=== PATIENT | female | born 1980 | race Caucasian/White ===

== ENCOUNTER 2017-02-11 00:15 | Emergency (ER) | payer MEDICAID ==
[~2017-02-11] VITALS: Ht 162.6 cm; Wt 69.4 kg
[~2017-02-11 00:15] MED LIST: ABILIFY15 MG ORAL; BACITRACIN1 APPLIC TOPIC; BACTRIM DS TAB1 EAC1 ORAL; BUPROPION XL300 MG ORAL; CLINDAMYCIN HC150 MG ORAL; MIRTAZAPINE15 M3 ORAL; NORCO 5-325 TA1 EACH ORAL; ROBAXIN-750750 MG PO; SERTRALINE HCL50 MG PO
[2017-02-11 00:35] VITALS: BP 111/71
[2017-02-11 01:08] VITALS: BP 111/71
--- NOTE | 2017-02-11 08:08 | Emergency Room Report ---
History of Present Illness General Chief Complaint: Multiple Trauma/Fall Source: Patient Present Illness HPI Patient's 36-year-old female presented after increased vaginal discharge as well as reported bleeding after a fall. Patient had the been presently 7 months OB. She denied recent fever. Reportedly her baby has been moving. She reported having some abdominal cramping. Allergies: Coded Allergies: No Known Allergies (Unverified , 12/09/12) Patient History Past Medical History: see triage record Now: Yes - 7 months Reviewed Nursing Documentation: PMH: Agreed, PSxH: Agreed Nursing Documentation-PMH Past Medical History: No Stated History Review of Systems All Other Systems: negative except mentioned in HPI Physical Exam Vital Signs Date Time Temp Pulse Resp B/P Pulse Ox O2 Delivery O2 Flow Rate FiO2 02/11/17 00:28 98.1 106 16 111/71 99 Room Air Sp02 EP Interpretation: reviewed, normal General Appearance: normal inspection, well appearing, no apparent distress, alert, GCS 15, non-toxic Head: atraumatic ENT: normal ENT inspection, hearing grossly normal, normal voice Neck: normal inspection, full range of motion, supple, no bony tend Respiratory: normal inspection, lungs clear, normal breath sounds, no respiratory distress, no retraction, no wheezing Cardiovascular #1: regular rate, rhythm, no edema Gastrointestinal: normal inspection, normal bowel sounds, non tender, soft, no guarding, no hernia Genitourinary: no CVA tenderness, cervix normal, ext genitalia/vag normal, os closed Musculoskeletal: normal inspection, back normal, normal range of motion Neurologic: normal inspection, alert, oriented x3, responsive, speech normal Psychiatric: normal inspection, judgement/insight normal, mood/affect normal Skin: normal inspection, normal color, no rash Medical Decision Making Diagnostic Impression: Primary Impression: Fall Additional Impressions: Intrauterine Third trimester ER Course Patient presented for fall. Differential diagnosis include was noted to labor, ruptured membranes, demise among others. The bedside ultrasound was performed and showed adequate heart tones. Patient noted have movement. Cervix to be closed. Patient was subsequently discharged She is advised to followup with an OB facility which could perform monitoring. Last Vital Signs Date Time Temp Pulse Resp B/P Pulse Ox O2 Delivery O2 Flow Rate FiO2 02/11/17 01:08 98.1 16 111/71 99 Room Air 02/11/17 00:28 106 Status: improved Disposition: HOME, SELF-CARE Condition: Stable Referrals: NOT CHOSEN IPA/MD,REFERRING Patient Instructions: Fall Prevention in the Home, Vaginal Bleeding During , Third Trimester Dain Moss Feb 11, 2017 08:08
== END 2017-02-11 01:08 | disposition home or self-care (01) ==
LOC: EMR 00:59
DX: O26.893 Other specified pregnancy related conditions, third trimester (principal); N89.8 Other specified noninflammatory disorders of vagina; Z91.81 History of falling
CPT/HCPCS: 99282

== ENCOUNTER 2018-07-04 19:33 | Emergency (ER) | payer MEDICAID ==
[~2018-07-04] VITALS: Ht 165.1 cm; Wt 47.6 kg
[2018-07-04 19:53] VITALS: BP 122/80
[2018-07-04 20:36] LABS: EOSINOPHILS % (AUTO) 2.6 % (0.0-3.0); HEMATOCRIT 38.9 % (37.0-47.0); HEMOGLOBIN 12.9 G/DL (12.0-16.0); LYMPHOCYTES % (AUTO) 33.7 % (20.0-45.0); MEAN CORPUSCULAR VOLUME 84 FL (80-99); MONOCYTES % (AUTO) 8.6 % (1.0-10.0); NEUTROPHILS % (AUTO) 54.1 % (45.0-75.0); PLATELET COUNT 392 K/UL (150-450); RED BLOOD COUNT 4.64 M/UL (4.20-5.40); RED CELL DISTRIBUTION WIDTH 12.4 % (11.6-14.8); WHITE BLOOD COUNT 11.4 K/UL (4.8-10.8)
[2018-07-04 20:43] LABS: ANION GAP 8 mmol/L (5-15); BLOOD UREA NITROGEN 12 mg/dL (7-18); CALCIUM 9.5 MG/DL (8.5-10.1); CARBON DIOXIDE 31 MMOL/L (21-32); CHLORIDE 104 MMOL/L (98-107); CREATININE 0.7 MG/DL (0.55-1.30); POTASSIUM 3.7 MMOL/L (3.5-5.1); SODIUM 142 MMOL/L (136-145)
[2018-07-04 20:48] LABS: ALANINE AMINOTRANSFERASE 20 U/L (12-78); ALBUMIN 3.8 G/DL (3.4-5.0); ALBUMIN/GLOBULIN RATIO 0.9 (1.0-2.7); ALKALINE PHOSPHATASE 75 U/L (46-116); ASPARTATE AMINO TRANSFERASE 12 U/L (15-37); BILIRUBIN,TOTAL 0.2 MG/DL (0.2-1.0)
[2018-07-04] MEDS ORDERED: ANUSOL-HC25 MG RECTAL (21:09)
[2018-07-04 21:34] LABS: BILIRUBIN, URINE NEGATIVE (NEGATIVE); COLOR,URINE PALE YELLOW; GLUCOSE, URINE (UA) NEGATIVE (NEGATIVE); KETONES,URINE NEGATIVE (NEGATIVE); LEUKOCYTE ESTERASE ,URINE 1+ (NEGATIVE); NITRITE,URINE POSITIVE (NEGATIVE); PH,URINE 6 (4.5-8.0); PROTEIN,URINE NEGATIVE (NEGATIVE); UROBILINOGEN,URINE NORMAL MG/DL (0.0-1.0)
[2018-07-04 21:35] LABS: APPEARANCE,URINE SLIGHTLY CLOUDY
--- NOTE | 2018-07-04 21:51 | Emergency Room Report ---
History of Present Illness General Chief Complaint: General Complaint Source: Patient (Piyush Gan MD) Present Illness HPI 38-year-old female presents ED for evaluation. States that she noticed rectal bleeding today. Started after using the bathroom while wiping. Noticed blood dripping in the toilet. States that for the last week she's been using a laxative to help "lose weight". Denies any abdominal pain. Denies seeing any blood thinners. States that her mother looked at her rectum and states that she might have a hemorrhoid. No other aggravating relieving factors. Denies any other associated symptoms (Piyush Gan MD) Allergies: Coded Allergies: No Known Allergies (Unverified , 12/09/12) Patient History Past Medical History: psych hx Past Surgical History: none Pertinent Family History: none Social History: Denies: smoking, alcohol use, drug use Last Menstrual Period: One week ago Now: No Immunizations: UTD Reviewed Nursing Documentation: PMH: Agreed; PSxH: Agreed (Piyush Gan MD) Nursing Documentation-PMH History Of Psychiatric Problem: Yes - PTSD (Piyush Gan MD) Review of Systems All Other Systems: negative except mentioned in HPI (Piyush Gan MD) Physical Exam Vital Signs Date Time Temp Pulse Resp B/P (MAP) Pulse Ox O2 Delivery O2 Flow Rate FiO2 07/04/18 19:45 98.2 94 16 122/80 97 Room Air Sp02 EP Interpretation: reviewed, normal General Appearance: no apparent distress, alert, GCS 15, non-toxic Head: normocephalic, atraumatic Eyes: bilateral eye normal inspection, bilateral eye PERRL ENT: hearing grossly normal, normal pharynx, no angioedema, normal voice Neck: full range of motion, supple/symm/no masses Respiratory: chest non-tender, lungs clear, normal breath sounds, speaking full sentences Cardiovascular #1: regular rate, rhythm, no edema Cardiovascular #2: 2+ carotid (R), 2+ carotid (L), 2+ radial (R), 2+ radial (L) , 2+ dorsalis pedis (R), 2+ dorsalis pedis (L) Gastrointestinal: normal bowel sounds, non tender, soft, non-distended, no guarding, no rebound Rectal: hemorrhoids Genitourinary: normal inspection, no CVA tenderness Musculoskeletal: back normal, gait/station normal, normal range of motion, non- tender Neurologic: alert, oriented x3, responsive, motor strength/tone normal, sensory intact, speech normal Psychiatric: judgement/insight normal, memory normal, mood/affect normal, no suicidal/homicidal ideation Reflexes: 3+ bicep (R), 3+ bicep (L), 3+ tricep (R), 3+ tricep (L), 3+ knee (R) , 3+ knee (L) Skin: normal color, no rash, warm/dry, well hydrated Lymphatic: no adenopathy (Piyush Gan MD) Medical Decision Making Diagnostic Impression: Primary Impression: Hemorrhoids Qualified Codes: K64.9 - Unspecified hemorrhoids Additional Impression: LGI bleed Labs Test 07/04/18 20:02 07/04/18 21:20 White Blood Count 11.4 K/UL (4.8-10.8) Red Blood Count 4.64 M/UL (4.20-5.40) Hemoglobin 12.9 G/DL (12.0-16.0) Hematocrit 38.9 % (37.0-47.0) Mean Corpuscular Volume 84 FL (80-99) Mean Corpuscular Hemoglobin 27.8 PG (27.0-31.0) Mean Corpuscular Hemoglobin Concent 33.2 G/DL (32.0-36.0) Red Cell Distribution Width 12.4 % (11.6-14.8) Platelet Count 392 K/UL (150-450) Mean Platelet Volume 5.6 FL (6.5-10.1) Neutrophils (%) (Auto) 54.1 % (45.0-75.0) Lymphocytes (%) (Auto) 33.7 % (20.0-45.0) Monocytes (%) (Auto) 8.6 % (1.0-10.0) Eosinophils (%) (Auto) 2.6 % (0.0-3.0) Basophils (%) (Auto) 1.0 % (0.0-2.0) Prothrombin Time 10.2 SEC (9.30-11.50) Prothromb Time International Ratio 1.0 (0.9-1.1) Activated Partial Thromboplast Time 28 SEC (23-33) Sodium Level 142 MMOL/L (136-145) Potassium Level 3.7 MMOL/L (3.5-5.1) Chloride Level 104 MMOL/L (98-107) Carbon Dioxide Level 31 MMOL/L (21-32) Anion Gap 8 mmol/L (5-15) Blood Urea Nitrogen 12 mg/dL (7-18) Creatinine 0.7 MG/DL (0.55-1.30) Estimat Glomerular Filtration Rate > 60 mL/min (>60) Glucose Level 107 MG/DL (74-106) Calcium Level 9.5 MG/DL (8.5-10.1) Total Bilirubin 0.2 MG/DL (0.2-1.0) Aspartate Amino Transf (AST/SGOT) 12 U/L (15-37) Alanine Aminotransferase (ALT/SGPT) 20 U/L (12-78) Alkaline Phosphatase 75 U/L (46-116) Total Protein 8.0 G/DL (6.4-8.2) Albumin 3.8 G/DL (3.4-5.0) Globulin 4.2 g/dL Albumin/Globulin Ratio 0.9 (1.0-2.7) Lipase 97 U/L (73-393) Urine Color Pale yellow Urine Appearance Slightly cloudy Urine pH 6 (4.5-8.0) Urine Specific [place] 1.020 (1.005-1.035) Urine Protein Negative (NEGATIVE) Urine Glucose (UA) Negative (NEGATIVE) Urine Ketones Negative (NEGATIVE) Urine Blood 4+ (NEGATIVE) Urine Nitrite Positive (NEGATIVE) Urine Bilirubin Negative (NEGATIVE) Urine Urobilinogen Normal MG/DL (0.0-1.0) Urine Leukocyte Esterase 1+ (NEGATIVE) Urine HCG, Qualitative Negative (NEGATIVE) (Piyush Gan MD) ER Course Patient signout to me. She presents with lower GI bleeding. She had a large amount of bleeding here. She was signed out to me for pending transfer. I discussed the case with Dr. Amaral who accepted the patient for transfer at [facility]. (Ezra Jay MD) CT/MRI/US Diagnostic Results CT/MRI/US Diagnostic Results : Imaging Test Ordered: ABD US Impression increased echogenicity of liver. sludge and stones in gallbladder. negative murphys (Piyush Gan MD) Last Vital Signs Date Time Temp Pulse Resp B/P (MAP) Pulse Ox O2 Delivery O2 Flow Rate FiO2 07/04/18 19:53 94 16 Room Air 07/04/18 19:53 98.2 122/80 97 Status: improved (Piyush Gan MD) Disposition: XFER SHT-TRM HOSP Condition: Stable Scripts Hydrocortisone Acetate* (ANUSOL-HC*) 25 Mg Supp.rect 1 SUPP RECTAL TWICE A DAY, #10 SUPP Prov: Piyush Gan MD 07/04/18 Patient Instructions: Hemorrhoids, [id number] Piyush Gan MD Jul 04, 2018 21:51 Ezra Jay MD Jul 04, 2018 23:05
[2018-07-04 22:33] VITALS: BP 103/64
[2018-07-05 03:07] VITALS: BP 110/72
--- NOTE | 2018-07-05 09:29 | Diagnostic Imaging Report ---
Indication: Abdominal pain and abdominal distention Technique: Allred-scale and duplex images of the upper abdomen were obtained Comparison: Findings: Gallbladder is nondistended. There is questionably some sludge and probably small stones. One or more of the echogenic foci appear to be nondependent and could represent tiny polyps rather than calculi. No wall thickening nor pericholecystic fluid Sonographic Keating's sign is negative. Common bile duct measures 6 mm in diameter. No intrahepatic biliary ductal dilatation. Liver demonstrates diffusely increased echogenicity, consistent with diffuse hepatocellular disease, most likely fatty change. Portal vein and hepatic veins are patent. Pancreas is unremarkable. Spleen is unremarkable. Left kidney measures 11.6 cm in length. Right kidney measures 12.1 cm length. Both kidneys demonstrate normal echogenicity. There is no hydronephrosis. No focal abnormality . Non-aneurysmal abdominal aorta . No free intraperitoneal fluid Impression: Liver demonstrates diffusely increased echogenicity, consistent with diffuse hepatocellular disease, most likely fatty change. Cholelithiasis. One or more questionable nondependent echogenic gallbladder foci, could represent tiny polyp rather than calculi No biliary ductal dilatation
== END 2018-07-05 03:13 | disposition short-term general hospital (02) ==
LOC: EMR 20:35
DX: K64.9 Unspecified hemorrhoids (principal); K92.2 Gastrointestinal hemorrhage, unspecified
CPT/HCPCS: 36415; 76700; 80053; 81003; 81025; 83690; 85025; 85610; 85730; 87086; 96360; 99285

== ENCOUNTER 2019-11-28 18:07 | Emergency (ER) | payer MEDICAID ==
[~2019-11-28] VITALS: Ht 162.6 cm; Wt 65.8 kg
[~2019-11-28 18:07] MED LIST changes: +ANUSOL-HC25 MG RECTAL
[2019-11-28 18:15] VITALS: BP 125/67
--- NOTE | 2019-11-28 18:32 | Emergency Room Report ---
History of Present Illness General Chief Complaint: Puncture Wound Source: Patient Present Illness HPI 39-year-old female presents with pain of the superficial abdomen patient reports that a drill bit pressed against her abdomen and it scratched it yesterday she wanted to have the wound evaluated no pus or drainage per patient , no acute pain severity is nonexistent no aggravating alleviating factors, patient also endorses right foot pain that occurred a few days ago he states some wood fell on her right lateral foot there is a sharp pain aggravated with movement only with rest severity is mild, intermittent patient presents for evaluation and treatment Allergies: Coded Allergies: No Known Allergies (Unverified , 12/09/12) COVID-19 Screening Contact w/high risk pt: No Recent Travel to affected area: No Experienced COVID-19 symptoms?: No Patient History Past Medical History: see triage record Last Menstrual Period: last month Now: Yes : 6 Para: 5 Reviewed Nursing Documentation: PMH: Agreed; PSxH: Agreed Nursing Documentation-PMH Past Medical History: No History, Except For History Of Psychiatric Problem: Yes - anxiety Review of Systems All Other Systems: negative except mentioned in HPI Physical Exam Vital Signs Date Time Temp Pulse Resp B/P (MAP) Pulse Ox O2 Delivery O2 Flow Rate FiO2 11/28/19 18:15 98.6 96 18 125/67 98 Room Air General Appearance: well appearing, no apparent distress Head: normocephalic, atraumatic ENT: hearing grossly normal, normal voice Neck: full range of motion, supple Respiratory: no respiratory distress, speaking full sentences Gastrointestinal: non tender, soft, other - 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, abdomen has old bruising, soft nontender no rebound no guarding, secondary healing is noted no pus no drainage no erythema Musculoskeletal: other - Right lower extremity: 2+ PT DP fires EHL, 5-5 plantar dorsiflexion at the ankle mild tenderness in the lateral metatarsal, no deformity Neurologic: alert, normal gait Psychiatric: mood/affect normal Skin: no rash Medical Decision Making Diagnostic Impression: Primary Impression: Abrasion of skin Additional Impression: Foot pain, right ER Course 39-year-old female presents with vague complaints, patient with a well-healing wound on the abdomen no evidence of infection we will give her a Tdap, no antibiotics indicated, x-ray of the right foot is negative, disposition home with return precautions follow-up with PCP Other X-Ray Diagnostic Results Other X-Ray Diagnostic Results : X-Ray ordered: Right foot # of Views/Limited Vs Complete: 3 View Indication: Pain EP Interpretation: Yes Interpretation: no dislocation, no fractures Impression: No acute disease Electronically Signed by: Alex Viera MD Last Vital Signs Date Time Temp Pulse Resp B/P (MAP) Pulse Ox O2 Delivery O2 Flow Rate FiO2 11/28/19 18:15 98.6 96 18 125/67 (86) 98 Room Air Disposition: HOME, SELF-CARE Condition: Stable Referrals: [facility]. [facility] Patient Instructions: Abrasion, [id number], Foot Contusion, [id number] Additional Instructions: The patient was provided with discharge instructions, notified to follow-up with a primary care doctor and or specialist in the next 24-48 hours, and to return to the ED if they have worsening of their symptoms. Please note that this report is being documented using [employer] technology. This can lead to erroneous entry secondary to incorrect interpretation by the dictating instrument. Alex Viera MD November 28, 2019 18:31
[2019-11-28] MEDS ORDERED: Tetanus/Diptheria/Pertussis IM ONE (18:45)
[2019-11-28 18:50] VITALS: BP 134/70
--- NOTE | 2019-11-29 09:04 | Diagnostic Imaging Report ---
Indication: Right foot pain Technique: 3 views right foot Comparison: none Findings: No acute fractures. No dislocations. There is very mild hammertoe deformity of the second through fifth digits. Impression: Negative
== END 2019-11-28 18:50 | disposition home or self-care (01) ==
LOC: EMR 18:40
DX: S30.811A Abrasion of abdominal wall, initial encounter (principal); M79.671 Pain in right foot; W22.8XXA Striking against or struck by other objects, initial encounter; Y93.9 Activity, unspecified; Y92.9 Unspecified place or not applicable
CPT/HCPCS: 73630; 81025; 90471; 90715; Z7502; 99283

== ENCOUNTER 2020-01-09 18:34 | Emergency (ER) | payer MEDICAID ==
[~2020-01-09] VITALS: Ht 162.6 cm; Wt 68.0 kg
[2020-01-09 19:13] VITALS: BP 105/67
[2020-01-09 19:33] LABS: ANION GAP 7 mmol/L (5-15); BLOOD UREA NITROGEN 7 mg/dL (7-18); CALCIUM 8.5 MG/DL (8.5-10.1); CARBON DIOXIDE 27 MMOL/L (21-32); CHLORIDE 105 MMOL/L (98-107); CREATININE 0.7 MG/DL (0.55-1.30); POTASSIUM 3.4 MMOL/L (3.5-5.1); SODIUM 139 MMOL/L (136-145)
[2020-01-09 19:40] LABS: ALANINE AMINOTRANSFERASE 15 U/L (12-78); ALBUMIN 2.9 G/DL (3.4-5.0); ALBUMIN/GLOBULIN RATIO 0.9 (1.0-2.7); ALKALINE PHOSPHATASE 48 U/L (46-116); ASPARTATE AMINO TRANSFERASE 14 U/L (15-37); BILIRUBIN,TOTAL 0.2 MG/DL (0.2-1.0)
--- NOTE | 2020-01-09 20:04 | Diagnostic Imaging Report ---
EXAM: US First Trimester , Transabdominal and Transvaginal CLINICAL HISTORY: PAIN TECHNIQUE: Real-time transabdominal and transvaginal obstetrical ultrasound of the maternal pelvis and a first trimester with image documentation. Transvaginal imaging was used for better evaluation of the fetus and adnexa. COMPARISON: No relevant prior studies available. FINDINGS: Gestation: No IUP. Uterus/cervix: Thick, heterogeneous , slightly vascular endometrium measuring 1.7 cm. Ovaries: The ovaries are not visualized. Free fluid: No free fluid. IMPRESSION: 1. No IUP. 2. Thick heterogeneous , slightly vascular endometrium measuring 1.7 cm.
[2020-01-09 20:23] LABS: BASOPHILS % (AUTO) 0.9 % (0.0-2.0); EOSINOPHILS % (AUTO) 1.7 % (0.0-3.0); HEMOGLOBIN 9.7 G/DL (12.0-16.0); LYMPHOCYTES % (AUTO) 25.3 % (20.0-45.0); MEAN CORPUSCULAR VOLUME 91 FL (80-99); MONOCYTES % (AUTO) 6.1 % (1.0-10.0); NEUTROPHILS % (AUTO) 66.1 % (45.0-75.0); PLATELET COUNT 367 K/UL (150-450); RED BLOOD COUNT 3.29 M/UL (4.20-5.40); RED CELL DISTRIBUTION WIDTH 13.3 % (11.6-14.8); WHITE BLOOD COUNT 12.2 K/UL (4.8-10.8)
--- NOTE | 2020-01-09 21:02 | Emergency Room Report ---
History of Present Illness General Chief Complaint: Complications Source: Patient Present Illness HPI 39-year-old female who reports being A1 is wheeled into the ED due to lightheadedness status post miscarriage. Patient reports that she went to [facility] earlier today due to vaginal bleeding and was told that she has miscarried twins. Patient is a heavy tobacco smoker. Patient has a stab wound keloiding in the abdomen which reports that was done 2 weeks ago and she got it as she was drilling and accidentally drilled herself in the abdomen. Patient went to the emergency room then and was told that she also is . Patient denies any urinary symptoms. Denies any headache and dizziness at this time. Appears to be pale. Complains of little bit of nausea however denies any vomiting, diarrhea constipation. Vital signs are within normal limits. Denies any calf tenderness or pleural chest pain. Patient has an upcoming visit with RECONCILIATION ACCOUNTANT. Patient reports that she is still bleeding minimally toward the vaginal canal. Patient also complains of a pruritic scalp that has been ongoing for over a month and is painful due to her scratching it too much. Denies any contact with new allergens. Reports that her kids have ringworm. Allergies: Coded Allergies: No Known Allergies (Unverified , 12/09/12) COVID-19 Screening Contact w/high risk pt: No Recent Travel to affected area: No Experienced COVID-19 symptoms?: No COVID-19 Testing performed VOUCHER EXAMINER: No Patient History Past Medical History: see triage record Past Surgical History: none Pertinent Family History: none Social History: Reports: smoking Now: Yes - 3 months Immunizations: UTD Reviewed Nursing Documentation: PMH: Agreed; PSxH: Agreed Nursing Documentation-PMH Past Medical History: No Stated History Review of Systems All Other Systems: negative except mentioned in HPI Physical Exam Vital Signs Date Time Temp Pulse Resp B/P (MAP) Pulse Ox O2 Delivery O2 Flow Rate FiO2 01/09/20 18:41 98.2 115 16 107/70 (82) 98 Room Air Sp02 EP Interpretation: reviewed, normal General Appearance: alert, GCS 15, non-toxic, mild distress Head: normocephalic, atraumatic Eyes: bilateral eye normal inspection, bilateral eye PERRL ENT: normal ENT inspection, hearing grossly normal, EOM grossly intact Neck: full range of motion, supple, supple/symm/no masses Respiratory: chest non-tender, lungs clear, normal breath sounds, no rhonchi, no respiratory distress, no retraction, no wheezing, speaking full sentences Cardiovascular #1: regular rate, rhythm, no edema, no murmur Cardiovascular #2: 2+ carotid (R), 2+ carotid (L), 2+ radial (R), 2+ radial (L) , 2+ femoral (R), 2+ femoral (L), 2+ dorsalis pedis (R), 2+ dorsalis pedis (L) Gastrointestinal: normal bowel sounds, non tender, soft, no mass, no peritonitis, no bruit, non-distended, no guarding, no rebound, other - Keloid noted periumbilical status post puncture wound Rectal: deferred Genitourinary: no CVA tenderness Musculoskeletal: back normal, no calf tenderness Neurologic: alert, motor strength/tone normal, oriented x3, sensory intact, responsive, speech normal Psychiatric: judgement/insight normal, memory normal, mood/affect normal, no suicidal/homicidal ideation Skin: no rash Lymphatic: no adenopathy Medical Decision Making PA Attestation All diagnoses and treatment plans were reviewed and discussed with my supervising physician Dr. Jean Diagnostic Impression: Primary Impression: Complete Additional Impressions: Iron deficiency anemia Tinea capitis ER Course 39-year-old female who reports being A1 is wheeled into the ED due to lightheadedness status post miscarriage. Patient reports that she went to [facility] earlier today due to vaginal bleeding and was told that she has miscarried twins. Patient is a heavy tobacco smoker. Patient has a stab wound keloiding in the abdomen which reports that was done 2 weeks ago and she got it as she was drilling and accidentally drilled herself in the abdomen. Patient went to the emergency room then and was told that she also is . Patient denies any urinary symptoms. Denies any headache and dizziness at this time. Appears to be pale. Complains of little bit of nausea however denies any vomiting, diarrhea constipation. Vital signs are within normal limits. Denies any calf tenderness or pleural chest pain. Patient has an upcoming visit with RECONCILIATION ACCOUNTANT. Patient reports that she is still bleeding minimally toward the vaginal canal. Patient also complains of a pruritic scalp that has been ongoing for over a month and is painful due to her scratching it too much. Denies any contact with new allergens. Reports that her kids have ringworm. Ddx considered but are not limited to: Complete , returned material post , ectopic , threatened , Vital signs: are WNL, pt. is afebrile H&PE are most consistent with: Complete , tinea capitis, iron deficiency anemia most likely secondary to complete ORDERS: UA, urine cx, CBC, CMP, type and screen, PT and PTT, beta-hCG quantitative, OB ultrasound, diplegia's, Tylenol, Bactroban, clotrimazole cream , ketoconazole shampoo, ferrous sulfate ED INTERVENTIONS: NS bolus DISCHARGE: At this time pt. is stable for d/c to home. Will provide printed patient care instructions, and any necessary prescriptions. Care plan and follow up instructions have been discussed with the patient prior to discharge. In 24 to 48 hours, gave a list of women's clinic to follow-up with, take medication as directed, if worsening symptoms return to the emergency room. Increase oral hydration. CT/MRI/US Diagnostic Results CT/MRI/US Diagnostic Results : Imaging Test Ordered: OB ultrasound Impression FINDINGS: Gestation: No IUP. Uterus/cervix: Thick, heterogeneous , slightly vascular endometrium measuring 1.7 cm. Ovaries: The ovaries are not visualized. Free fluid: No free fluid. IMPRESSION: 1. No IUP. 2. Thick heterogeneous , slightly vascular endometrium measuring 1.7 cm. Last Vital Signs Date Time Temp Pulse Resp B/P (MAP) Pulse Ox O2 Delivery O2 Flow Rate FiO2 01/09/20 19:13 98.2 82 15 105/67 99 Room Air Disposition: HOME, SELF-CARE Condition: Stable Scripts Mupirocin* (MUPIROCIN*) 22 Gm Oint...g. 1 APPLIC TOPIC THREE TIMES A DAY, #22 GM Prov: KietmoghaGordon lawrence PA 01/09/20 Ketoconazole (KETOCONAZOLE) 120 Ml Shampoo 10 ML TP DAILY for 14 Days, #140 ML Prov: KietmogGordon farley PA 01/09/20 Clotrimazole* (LOTRIMIN*) 15 Gm Cream..g. 1 APPLIC TOPIC TWICE A DAY, #15 GM Prov: BrigidaelimoghavaGordon mejia 01/09/20 Diphenhydramine HCl (Benadryl) 25 Mg Capsule 25 MG PO BID, #14 CAP Prov: Gordon Galvan 01/09/20 Acetaminophen* (TYLENOL EXTRA STRENGTH*) 500 Mg Tablet 500 MG ORAL Q8H PRN for Prn Headache/Temp > 101, #30 TAB 0 Refills Prov: Gordon Galvan 01/09/20 Doxylamine/Pyridoxine Hcl (EFRA FUENTES 10-10 MG TABLET) 1 Each Tablet.dr 1 EACH PO DAILY, #10 TAB Prov: Gordon Galvan 01/09/20 Ferrous Sulfate* (FERROUS SULFATE*) 325 Mg Tablet 325 MG ORAL TWICE A DAY, #60 TAB 0 Refills Prov: Gordon Galvan 01/09/20 Referrals: NON PHYSICIAN (PCP) Patient Instructions: Iron Deficiency Anemia, Adult, [id number], Miscarriage , Ijlb-[id number], Scalp Ringworm, [id number]-[id number] Additional Instructions: Take medication as directed, follow-up with your RECONCILIATION ACCOUNTANT in 24 to 48 hours, your beta-hCG and ultrasound need to be repeated. If worsening symptoms return to the emergency room. Increase oral hydration especially electrolyte water. Gordon Galvan Jan 09, 2020 21:02
[2020-01-09] MEDS ORDERED: KETOCONAZOLE120 ML TP (21:08)
[2020-01-09] MEDS ORDERED: MUPIROCIN22 GM TOPIC (21:08)
[2020-01-09] MEDS ORDERED: CLOTRIMAZOLE15 GM TOPIC (21:08)
[2020-01-09] MEDS ORDERED: DICLEGIS DR 101 EACH PO (21:08)
[2020-01-09] MEDS ORDERED: TYLENOL EXTRA500 MG ORAL (21:08)
[2020-01-09] MEDS ORDERED: FERROUS SULFAT325 MG ORAL (21:08)
[2020-01-09] MEDS ORDERED: BENADRYL25 M3 PO (21:08)
[2020-01-09 21:43] VITALS: BP 116/69
== END 2020-01-09 21:45 | disposition home or self-care (01) ==
LOC: EMR 18:45
DX: O03.9 Complete or unspecified spontaneous abortion without complication (principal); D50.9 Iron deficiency anemia, unspecified; B35.0 Tinea barbae and tinea capitis; F17.200 Nicotine dependence, unspecified, uncomplicated
CPT/HCPCS: 36415; 76801; 76817; 80053; 84702; 84703; 85025; 85610; 85730; 86850; 86870; 86900; 86901; 96360; J7030; Z7502; 99284

== ENCOUNTER 2020-06-08 02:51 | Emergency (ER) | payer MEDICAID ==
[~2020-06-08] VITALS: Ht 162.6 cm; Wt 63.5 kg
[~2020-06-08 02:51] MED LIST changes: +BENADRYL25 M3 PO; +CLOTRIMAZOLE15 GM TOPIC; +DICLEGIS DR 101 EACH PO; +FERROUS SULFAT325 MG ORAL; +KETOCONAZOLE120 ML TP; +MUPIROCIN22 GM TOPIC; +TYLENOL EXTRA500 MG ORAL
[2020-06-08] MEDS ORDERED: AMOXICILLIN500 MG ORAL (02:55)
[2020-06-08 03:00] VITALS: BP 132/78
--- NOTE | 2020-06-08 03:00 | NUR ---
ED Nurse Note: Pt walked into ED from home c/o bilateral earache L>R that radiates to the temples. Pt denies fevers, n/v, chills. Pt states she was recently prescribed antifungal cream for earache ealier this week but symptoms remain. Pt denies tramatic injury to areas, denies swimmin recently. Pt is AAOx4, breathing even and unlabored, vital signs stable.
[2020-06-08] MEDS ORDERED: NIZORAL 2% S1 APPLIC TOPIC (03:26)
[2020-06-08] MEDS ORDERED: CIPRODEX OTIC7.5 M1 LEFT EAR (03:26)
[2020-06-08 03:34] VITALS: BP 130/75
--- NOTE | 2020-06-08 03:34 | NUR ---
ER DISCHARGE NOTE: Patient is cleared to be discharged per ERMD, pt is aox4, on room air, with stable vital signs. pt was given dc paperwork and paper prescriptions, pt was able to verbalize understanding, pt id band removed. pt is able to ambulate with steady gait. pt took all belongings.
--- NOTE | 2020-06-08 03:41 | Emergency Room Report ---
History of Present Illness General Chief Complaint: Earache Present Illness HPI 40-year-old female here with left ear pain and scalp rash. Patient says that she has had the scalp rash for 2 months and the left ear pain for several days. She says that "the outside of my ear hurts really badly." Denies hearing changes. Denies fevers, chills, chest pain, palpitations, shortness of breath, back pain, abdominal pain, nausea, vomiting, diarrhea, dysuria. Says that she has noticed some hair loss with a scaling flaking rash on her scalp. Allergies: Coded Allergies: No Known Allergies (Unverified , 12/09/12) COVID-19 Screening Contact w/high risk pt: No Recent Travel to affected area: No Experienced COVID-19 symptoms?: No COVID-19 Testing performed LANDSCAPE MANAGER: No Patient History Last Menstrual Period: 05/2020 Review of Systems All Other Systems: negative except mentioned in HPI Physical Exam Vital Signs Date Time Temp Pulse Resp B/P (MAP) Pulse Ox O2 Delivery O2 Flow Rate FiO2 06/08/20 02:59 98.8 98 16 132/78 (96) 97 Room Air Sp02 EP Interpretation: reviewed, normal General Appearance: no apparent distress, alert, non-toxic Head: normocephalic, atraumatic, other - Scaling skin rash in small patches diffusely on the scalp Eyes: bilateral eye normal inspection, bilateral eye PERRL ENT: hearing grossly normal, normal pharynx, no angioedema, normal voice, other - Erythematous inflamed skin changes of the left external ear canal. No active bleeding or drainage. Pain on movement of the left pinna. No mastoid tenderness. Normal neck range of motion Neck: full range of motion, supple/symm/no masses Respiratory: chest non-tender, lungs clear, normal breath sounds, speaking full sentences Cardiovascular #1: regular rate, rhythm, no edema Cardiovascular #2: 2+ carotid (R), 2+ carotid (L), 2+ radial (R), 2+ radial (L), 2+ dorsalis pedis (R), 2+ dorsalis pedis (L) Gastrointestinal: normal bowel sounds, non tender, soft, non-distended, no guarding, no rebound Rectal: deferred Genitourinary: normal inspection, no CVA tenderness Musculoskeletal: back normal, normal range of motion, calf tenderness, gait/station normal, non-tender Neurologic: alert, motor strength/tone normal, oriented x3, sensory intact, responsive, speech normal Psychiatric: judgement/insight normal, memory normal, mood/affect normal, no suicidal/homicidal ideation Reflexes: 3+ bicep (R), 3+ bicep (L), 3+ tricep (R), 3+ tricep (L), 3+ knee (R), 3+ knee (L) Lymphatic: no adenopathy Medical Decision Making Diagnostic Impression: Primary Impression: Otitis externa Additional Impression: Rash ER Course ddx: Dermatitis (atopic/contact) allergic reaction, insect bite, bed bugs/ scabies, viral exanthem, cellulitis, SJS, TEN, nec fasc, petechiae, otitis media, otitis externa 40-year-old female here with skin skin rash and left ear pain. The skin rash appears fungal in nature. Patient was given a prescription for ketoconazole sha mpoo. Told to follow-up with her primary care provider. Left ear appeared to be otitis externa. No history of diabetes. No mastoid tenderness. No worry at this time for malignant otitis externa or mastoiditis. She had normal neck range of motion with no meningeal signs. No headache or vision changes focal numbness or weakness. She had normal vital signs in the emergency department. She was given a prescription for Ciprodex drops and again was told to follow-up with her primary care provider. Discharged in stable condition. Last Vital Signs Date Time Temp Pulse Resp B/P (MAP) Pulse Ox O2 Delivery O2 Flow Rate FiO2 06/08/20 03:00 98.8 88 16 132/78 97 Room Air Disposition: HOME, SELF-CARE Condition: Stable Scripts Ketoconazole (Ketoconazole) 120 Ml Shampoo 1 APPLIC TOPIC DAILY for 7 Days, ML Prov: Shyam Merlos M.D. 06/08/20 Ciprofloxacin Hcl/Dexameth (CIPRODEX OTIC SUSPENSION) 7.5 Ml Drops.susp 4 DROP LEFT EAR TWICE A DAY for 7 Days, AMP Prov: Shyam Merlos M.D. 06/08/20 Amoxicillin* (AMOXIL*) 500 Mg Capsule 500 MG ORAL THREE TIMES A DAY for 7 Days, #21 CAP Prov: Shyam Merlos M.D. 06/08/20 Referrals: [facility] Patient Instructions: Otitis Media, Adult Shyam Merlos M.D. Jun 08, 2020 03:41
== END 2020-06-08 03:34 | disposition home or self-care (01) ==
LOC: EMR 03:05
DX: H60.92 Unspecified otitis externa, left ear (principal); R21 Rash and other nonspecific skin eruption
CPT/HCPCS: 99282

== ENCOUNTER 2020-10-14 19:30 | Emergency (ER) | payer MEDICAID ==
[~2020-10-14] VITALS: Ht 162.6 cm; Wt 65.8 kg
[~2020-10-14 19:30] MED LIST changes: +AMOXICILLIN500 MG ORAL; +CIPRODEX OTIC7.5 M1 LEFT EAR; +NIZORAL 2% S1 APPLIC TOPIC
--- NOTE | 2020-10-14 19:41 | Emergency Room Report ---
History of Present Illness General Chief Complaint: To Be Triaged Source: Patient Present Illness HPI This patient states that she is 2 months . She states she found out 2 weeks ago when she was getting a COVID-19 vaccine. She states she was tested that time and told that she was . She presents to the emergency department today because she states she is having lower abdominal cramping and vaginal bleeding. She is G9, P5. She also states that she has had an area just outside her left ear that has been sore and she has "picked" at it. She denies inner ear pain. She denies hearing loss. She denies headache or neck pain. She denies nausea or vomiting. She denies change in vision. She has no other complaints. Allergies: Coded Allergies: No Known Allergies (Unverified , 12/09/12) COVID-19 Screening Contact w/high risk pt: No Recent Travel to affected area: No Experienced COVID-19 symptoms?: No Patient History Past Medical History: none, see triage record Social History: Denies: smoking, alcohol use, drug use Reviewed Nursing Documentation: PMH: Agreed; PSxH: Agreed Review of Systems All Other Systems: negative except mentioned in HPI Physical Exam Sp02 EP Interpretation: reviewed, normal General Appearance: no apparent distress, alert, GCS 15, non-toxic Head: normocephalic, atraumatic Eyes: bilateral eye normal inspection, bilateral eye PERRL ENT: hearing grossly normal, normal pharynx, no angioedema, normal voice, other - L. external canal with mild swelling, erythema. TM wnl. R. ear WNL. Neck: full range of motion, supple/symm/no masses Respiratory: no respiratory distress, no retraction, no accessory muscle use, speaking full sentences Gastrointestinal: normal bowel sounds, soft, non-distended, no guarding, no rebound, tenderness - mild ttp supra-pubic region. Rectal: deferred Musculoskeletal: back normal, normal range of motion, gait/station normal, non- tender Neurologic: alert, motor strength/tone normal, oriented x3, sensory intact, responsive, speech normal Psychiatric: judgement/insight normal, memory normal, mood/affect normal, no suicidal/homicidal ideation Skin: no rash, normal color Medical Decision Making Diagnostic Impression: Primary Impression: Miscarriage ER Course The patient had reported a positive test 2 weeks ago and vaginal bleeding. The patient underwent an ultrasound which shows no intrauterine . Also, the patient's hCG is 1. This is consistent with spontaneous that is complete. Overall, the patient's evaluation is benign. The patient has a history of anemia but this has significantly improved and the patient's H&H is much improved from her previous. Overall, the patient's evaluation is benign. The patient is a negative so she is given RhoGam. The patient was instructed to follow-up closely with her primary care physician. Patient is given close return precautions and follow-up instructions. Laboratory Tests Test 10/14/20 20:46 White Blood Count 9.9 K/UL (4.8-10.8) Red Blood Count 4.83 M/UL (4.20-5.40) Hemoglobin 11.4 G/DL (12.0-16.0) L Hematocrit 36.1 % (37.0-47.0) L Mean Corpuscular Volume 75 FL (80-99) L Mean Corpuscular Hemoglobin 23.5 PG (27.0-31.0) L Mean Corpuscular Hemoglobin Concent 31.4 G/DL (32.0-36.0) L Red Cell Distribution Width 18.4 % (11.6-14.8) H Platelet Count 461 K/UL (150-450) H Mean Platelet Volume 5.1 FL (6.5-10.1) L Neutrophils (%) (Auto) 56.4 % (45.0-75.0) Lymphocytes (%) (Auto) 29.6 % (20.0-45.0) Monocytes (%) (Auto) 8.4 % (1.0-10.0) Eosinophils (%) (Auto) 4.2 % (0.0-3.0) H Basophils (%) (Auto) 1.4 % (0.0-2.0) Sodium Level 142 MMOL/L (136-145) Potassium Level 3.5 MMOL/L (3.5-5.1) Chloride Level 103 MMOL/L (98-107) Carbon Dioxide Level 30 MMOL/L (21-32) Anion Gap 9 mmol/L (5-15) Blood Urea Nitrogen 11 mg/dL (7-18) Creatinine 0.8 MG/DL (0.55-1.30) Estimated Glomerular Filtration Rate > 60 mL/min (>60) Glucose Level 90 MG/DL (74-106) Calcium Level 9.5 MG/DL (8.5-10.1) Total Bilirubin 0.2 MG/DL (0.2-1.0) Aspartate Amino Transferase (AST) 12 U/L (15-37) L Alanine Aminotransferase (ALT) 22 U/L (12-78) Alkaline Phosphatase 76 U/L (46-116) Total Protein 7.4 G/DL (6.4-8.2) Albumin 3.9 G/DL (3.4-5.0) Globulin 3.5 g/dL Albumin/Globulin Ratio 1.1 (1.0-2.7) Lipase 127 U/L (73-393) Human Chorionic Gonadotropin, Quant 1 mIU/mL (1-6) CT/MRI/US Diagnostic Results CT/MRI/US Diagnostic Results : Imaging Test Ordered: US ob Impression No IUP. See official report in the EMR. Status: improved Disposition: HOME, SELF-CARE Condition: Improved Leydi Hernandez DO Oct 14, 2020 19:41
--- NOTE | 2020-10-14 19:44 | NUR ---
Pt reports waking up today with spotting going through x8 pads today. Pt reports distended abdomen and cramping, sharp, and pressure abd pain radiating from lateral umbilical region towards the lower abd. Pt currently has abd support in place. Pt states she is x6 weeks with previous miscarriage x6 months ago with twins. Pt currently taking Rhogam and no pain medications today.
--- NOTE | 2020-10-14 20:43 | NUR ---
ED Nurse Note: IV started on left AC 20 gauge. bloodwork sent down. patient still unable to provide a urine sample
[2020-10-14 20:52] LABS: BASOPHILS % (AUTO) 1.4 % (0.0-2.0); EOSINOPHILS % (AUTO) 4.2 % (0.0-3.0); HEMATOCRIT 36.1 % (37.0-47.0); HEMOGLOBIN 11.4 G/DL (12.0-16.0); LYMPHOCYTES % (AUTO) 29.6 % (20.0-45.0); MEAN CORPUSCULAR VOLUME 75 FL (80-99); MONOCYTES % (AUTO) 8.4 % (1.0-10.0); NEUTROPHILS % (AUTO) 56.4 % (45.0-75.0); PLATELET COUNT 461 K/UL (150-450); RED BLOOD COUNT 4.83 M/UL (4.20-5.40); RED CELL DISTRIBUTION WIDTH 18.4 % (11.6-14.8); WHITE BLOOD COUNT 9.9 K/UL (4.8-10.8)
--- NOTE | 2020-10-14 20:53 | Diagnostic Imaging Report ---
EXAM: US First Trimester , Transabdominal and Transvaginal CLINICAL HISTORY: PAIN TECHNIQUE: Real-time transabdominal and transvaginal obstetrical ultrasound of the maternal pelvis and a first trimester with image documentation. Transvaginal imaging was used for better evaluation of the fetus and adnexa. COMPARISON: No relevant prior studies available. FINDINGS: Gestation: No evidence of an IUP. Placenta/amniotic fluid: Cannot be adequately evaluated due to the early gestational age. Uterus/cervix: Suspected tiny nabothian cysts within the cervix. No myometrial mass. Ovaries: Unremarkable. No mass. Free fluid: No free fluid. IMPRESSION: No evidence of an IUP. Correlate with beta-hCG and short interval follow-up if clinically indicated.
[2020-10-14 21:03] VITALS: BP 120/82
[2020-10-14 21:16] LABS: ALANINE AMINOTRANSFERASE 22 U/L (12-78); ALBUMIN 3.9 G/DL (3.4-5.0); ALBUMIN/GLOBULIN RATIO 1.1 (1.0-2.7); ALKALINE PHOSPHATASE 76 U/L (46-116); ANION GAP 9 mmol/L (5-15); ASPARTATE AMINO TRANSFERASE 12 U/L (15-37); BILIRUBIN,TOTAL 0.2 MG/DL (0.2-1.0); BLOOD UREA NITROGEN 11 mg/dL (7-18); CALCIUM 9.5 MG/DL (8.5-10.1); CARBON DIOXIDE 30 MMOL/L (21-32); CHLORIDE 103 MMOL/L (98-107); CREATININE 0.8 MG/DL (0.55-1.30); POTASSIUM 3.5 MMOL/L (3.5-5.1); SODIUM 142 MMOL/L (136-145)
[2020-10-14] MEDS ORDERED: RHO (D) Immune Globulin 1500 Units IM ONE (22:15)
[2020-10-14 22:26] VITALS: BP 125/80
--- NOTE | 2020-10-14 22:26 | NUR ---
ER DISCHARGE NOTE: Patient is cleared to be discharged per ERMD, pt is aox4, on room air, with stable vital signs. pt was given dc and prescription instructions, pt was able to verbalize understanding, pt id band and iv site removed without complications. pt is able to ambulate with steady gait. pt took all belongings.
== END 2020-10-14 22:27 | disposition home or self-care (01) ==
LOC: EMR 19:45
DX: O03.9 Complete or unspecified spontaneous abortion without complication (principal)
CPT/HCPCS: 36415; 76801; 76817; 80053; 83690; 84702; 85025; 86850; 86900; 86901; 96372; J2791; Z7502; 99284

== ENCOUNTER 2020-10-15 17:40 | Emergency (ER) | payer MEDICAID ==
[~2020-10-15] VITALS: Ht 152.4 cm; Wt 59.0 kg
[2020-10-15 17:56] VITALS: BP 114/70
--- NOTE | 2020-10-15 17:58 | Emergency Room Report ---
History of Present Illness General Chief Complaint: General Complaint Source: Patient Present Illness HPI Disclaimer: Please note that this report is being documented using DRAGON technology. This can lead to erroneous entry secondary to incorrect interpretation by the dictating instrument. HPI: 40-year-old G9, P5 female presents for RhoGam administration. She was reportedly 2 months and was seen at this hospital yesterday for abdominal pain and vaginal bleeding. Diagnosed with complete miscarriage by ultrasound and found to be A negative blood type. Pharmacy department was closed at the time of her visit and therefore could not administer RhoGam. She was told to return to receive RhoGam today. She denies any further bleeding, cramping, abdominal pain, vomiting or other symptoms. PMH: Reviewed PSH: Reviewed Allergies: Reviewed Social Hx: Reviewed Allergies: Coded Allergies: No Known Allergies (Unverified , 12/09/12) COVID-19 Screening Contact w/high risk pt: No Recent Travel to affected area: No Experienced COVID-19 symptoms?: No COVID-19 Testing performed RAILROAD CAR CLEANER: No Patient History Now: No Nursing Documentation-PMH Past Medical History: No Stated History Review of Systems All Other Systems: negative except mentioned in HPI Physical Exam Vital Signs Date Time Temp Pulse Resp B/P (MAP) Pulse Ox O2 Delivery O2 Flow Rate FiO2 10/15/20 17:48 98.1 78 16 114/70 (85) 97 Room Air General: Awake and alert, no acute distress HEENT: NC/AT. EOMI. Resp: Normal work of breathing Skin: Intact. No abrasions, laceration or rash over the exposed skin MSK: Normal tone and bulk. Moving all extremities. No obvious deformity. Neuro: Awake and alert. Mentating appropriately Medical Decision Making Diagnostic Impression: Primary Impression: Miscarriage ER Course 40-year-old G9, P5 female diagnosed with complete miscarriage yesterday presents for RhoGam administration. Unfortunately, as our hospital is closing we no longer have RhoGam in stock. She will be directed to proceed to another hospital for RhoGam administration. No other complaints or concerns at this time. Patient will be discharged. Copies of her labs from yesterday provided. Last Vital Signs Date Time Temp Pulse Resp B/P (MAP) Pulse Ox O2 Delivery O2 Flow Rate FiO2 10/15/20 17:56 98.1 16 114/70 97 Room Air 10/15/20 17:53 78 Disposition: HOME, SELF-CARE Condition: Stable Patient Instructions: Rh Incompatibility Additional Instructions: Unfortunately, due to the closure of our hospital we no longer have RhoGam to administer. Proceed to another healthcare facility to obtain RhoGam following your miscarriage yesterday. Follow-up with DYE CAN OPERATOR as soon as possible. Cirilo Jean MD Oct 15, 2020 17:58
== END 2020-10-15 18:20 | disposition home or self-care (01) ==
LOC: EMR 18:05
DX: O03.9 Complete or unspecified spontaneous abortion without complication (principal)
CPT/HCPCS: 99281